=== PATIENT | male | born 1965 | race Caucasian/White ===

== ENCOUNTER 2017-12-31 12:31 | Emergency (ER) | payer SELFPAY ==
--- NOTE | 2017-12-31 12:51 | EDPHY ---
H & P Stated Complaint: Trouble sleeping >1mo;urine green>1mo;"problem w/alcohol" Time Seen by Provider: 12/31/17 12:50 HPI/ROS: HPI: This is a 52-year-old male who presents with Chief Complaint: Trouble sleeping >1mo;urine green>1mo;"problem w/alcohol" Location: heart Quality: Heart racing Duration: 1 month Signs and Symptoms: + shortness of breath at rest, no shortness of breath on exertion, no cough, no chest pain, + palpitations, no lower extremity edema, no wheezing, no orthopnea, no paroxysmal nocturnal dyspnea, no fever, no injury/ trauma, no hemoptysis, no carpal pedal spasms Timing: Intermittent episodes, lasting for min to hours Severity: Moderate Context: Patient reports he lost his job approximately 1 month ago, drinks 8 beers every evening and over the last month has had difficulty sleeping described as going to sleep as well as stain to sleep. He reports that in the past he has had some anxiety issues. He wakes up in the middle the night with bad dreams and having panic attack. He complains of his heart racing sometimes for min to hours accompanied by difficulty breathing, getting his breath, sweating. He denies any seizure activity. He reports that he has no primary care provider or health insurance at this time. He denies any homicidal ideation/suicidal ideation/hallucinations. Patient also incidentally complains of having green colored urine over the last month. Denies any history of kidney stones/hematuria/urinary hesitancy. No heavy metal exposure. Modifying Factors: None Comment: ROS: see HPI Constitutional: No fever, no chills, no weight loss Eyes: No blurred vision Respiratory: No shortness of breath, no cough Cardiovascular: No chest pain Gastrointestinal: No nausea, no vomiting, no diarrhea Genitourinary: No dysuria Extremities: No myalgias Neurologic: No weakness, no numbness Skin: No rashes Hematologic: No bruising, no bleeding MEDICAL/SURGICAL/SOCIAL HISTORY: Medical history: Generally drinks 8 beers every evening. Does not take any regular medications. Surgical history: Denies Social history: Current every day smoker. Currently unemployed. Family history noncontributory. CONSTITUTIONAL: Nontoxic appearing adult middle aged male, awake and alert, no obvious distress HEENT: Atraumatic and normocephalic, PERRL, EOMI. Nares patent; no rhinorrhea; no nasal mucosal edema. Tympanic membranes clear. Oropharynx clear, no exudate and moist pink mucosa. Airway patent. No lymphadenopathy. No meningismus. Cardiovascular: Normal S1/S2, regular rate, regular rhythm, without murmur rub or gallop. PULMONARY/CHEST: Symmetrical and nontender. Clear to auscultation bilaterally. Good air movement. No accessory muscle usage. ABDOMEN: Soft, nondistended, nontender, no rebound, no guarding, no peritoneal signs, no masses or organomegaly. No CVAT. EXTREMITIES: 2/2 pulses, strength 5/5, no deformities, no clubbing, no cyanosis or edema. NEUROLOGICAL: no focal neuro deficits. GCS 15. SKIN: Warm and dry, no erythema. no rash. Good capillary refill. PSYCH: flat affect, good eye contact, no flight of ideas, organized thought process, fair insight and judgment, no auditory and visual command hallucinations, no suicidal ideation with a plan, no homicidal ideation, not paranoid Source: Patient Exam Limitations: No limitations - Personal History Current Tetanus Diphtheria and Acellular Pertussis (TDAP): Yes - Medical/Surgical History Hx Alcoholism: Yes Other PMH: "healthy" - Social History Smoking Status: Current every day smoker Constitutional: Initial Vital Signs Temperature (C) 36.7 C 12/31/17 12:33 Heart Rate 70 12/31/17 12:33 Respiratory Rate 18 12/31/17 12:33 Blood Pressure 186/98 H 12/31/17 12:33 O2 Sat (%) 95 12/31/17 12:33 O2 Delivery Mode Room Air Allergies/Adverse Reactions: No Known Allergies Allergy (Unverified 12/31/17 12:37) Home Medications: Medication Instructions Recorded NK [No Known Home Meds] 12/31/17 Medical Decision Making - Diagnostics EKG Interpretation: 12 lead EKG: Indication: palpitations Rhythm: Normal sinus rhythm, rate 68 bpm [place]: Normal Intervals: Normal QRS: Normal ST segments: Normal INTERPRETATION: LAFB The 12 lead EKG was interpreted by myself. ED Course/Re-evaluation: EKG, labs, urinalysis ordered Does not meet M1 hold or Detainer criteria EKG my read shows normal sinus rhythm, 68 beats per minute. no arrhythmia/acute ischemic changes. Urinalysis is completely unremarkable. 1325: Reviewed labs. No signs of leukocytosis/anemia/TORRES/elevated LFTs/ electrolyte imbalance/thyroid disease/ACS. Blood pressure improved at discharge SBP 144/102 Referral given to [facility]. This patient was seen under the supervision of my secondary supervising physician. I evaluated care for this patient independently. Discussed this patient with Dr. Cleveland who did not see the patient. Differential Diagnosis: Palpitations including but not limited to myocardial ischemia, pulmonary embolus , chest wall pain, pleural inflammation and pulmonary infectious causes. - Data Points Laboratory Results: Laboratory Results 12/31/17 13:10 12/31/17 13:10 12/31/17 12/31/17 12/31/17 13:10 13:10 12:45 WBC 6.30 10^3/uL 10^3/uL (3.80-9.50) RBC 5.03 10^6/uL 10^6/uL (4.40-6.38) Hgb 16.0 g/dL g/dL (13.7-17.5) Hct 45.9 % % (40.0-51.0) MCV 91.3 fL fL (81.5-99.8) MCH 31.8 pg pg (27.9-34.1) MCHC 34.9 g/dL g/dL (32.4-36.7) RDW 12.7 % % (11.5-15.2) Plt Count 236 10^3/uL 10^3/uL (150-400) MPV 10.4 fL fL (8.7-11.7) Neut % (Auto) 64.9 % % (39.3-74.2) Lymph % (Auto) 23.3 % % (15.0-45.0) [place] % (Auto) 10.2 % % (4.5-13.0) Eos % (Auto) 0.8 % % (0.6-7.6) Baso % (Auto) 0.5 % % (0.3-1.7) Nucleat RBC Rel Count 0.0 % % (0.0-0.2) Absolute Neuts (auto) 4.09 10^3/uL 10^3/uL (1.70-6.50) Absolute Lymphs (auto) 1.47 10^3/uL 10^3/uL (1.00-3.00) Absolute Monos (auto) 0.64 10^3/uL 10^3/uL (0.30-0.80) Absolute Eos (auto) 0.05 10^3/uL 10^3/uL (0.03-0.40) Absolute Basos (auto) 0.03 10^3/uL 10^3/uL (0.02-0.10) Absolute Nucleated RBC 0.00 10^3/uL 10^3/uL (0-0.01) Immature Gran % 0.3 % % (0.0-1.1) Immature Gran # 0.02 10^3/uL 10^3/uL (0.00-0.10) Sodium 137 mEq/L mEq/L (135-145) Potassium 4.3 mEq/L mEq/L (3.5-5.2) Chloride 100 mEq/L mEq/L (97-110) Carbon Dioxide 22 mEq/l mEq/l (22-31) Anion Gap 15 mEq/L mEq/L (8-16) BUN 9 mg/dL mg/dL (7-23) Creatinine 0.6 mg/dL L mg/dL (0.7-1.3) Estimated GFR > 60 Glucose 101 mg/dL H mg/dL (70-100) Calcium 9.2 mg/dL mg/dL (8.5-10.4) Magnesium 1.9 mg/dL mg/dL (1.6-2.3) Total Bilirubin 0.9 mg/dL mg/dL (0.1-1.4) AST 23 IU/L IU/L (17-59) ALT 41 IU/L IU/L (21-72) Alkaline Phosphatase 59 IU/L IU/L (38-126) Troponin I < 0.012 ng/mL ng/mL (0.000-0.034) Total Protein 7.3 g/dL g/dL (6.3-8.2) Albumin 4.2 g/dL g/dL (3.5-5.0) TSH 1.420 uIU/mL uIU/mL (0.465-4.680) Urine Color PALE YELLOW Urine Appearance CLEAR Urine pH 7.0 (5.0-7.5) Ur Specific [place] 1.005 (1.002-1.030) Urine Protein NEGATIVE (NEGATIVE) Urine Ketones NEGATIVE (NEGATIVE) Urine Blood NEGATIVE (NEGATIVE) Urine Nitrate NEGATIVE (NEGATIVE) Urine Bilirubin NEGATIVE (NEGATIVE) Urine Urobilinogen NEGATIVE EU EU (0.2-1.0) Ur Leukocyte Esterase NEGATIVE (NEGATIVE) Urine Glucose NEGATIVE (NEGATIVE) Departure - Departure Disposition: Home, Routine, Self-Care Clinical Impression: Alcohol abuse, continuous drinking behavior, Stress and adjustment reaction, Elevated blood pressure reading Condition: Good Instructions: Alcohol Withdrawal (ED), Alcohol Use Disorder (ED) Additional Instructions: Slowly refrain from using alcohol. Establish care at [facility] for elevated blood pressure readings as well as [facility] for counseling and assessment. Call 911 if you have thoughts of hurting or killing yourself or anyone else, or have any new or worsening symptoms that concern you. Referrals: [facility],. [Clinic] - As per Instructions [facility],. [Clinic] - As per Instructions [facility] [Outside] - As per Instructions
--- NOTE | 2017-12-31 13:04 | CPEKG ---
Heart Rate: 68 RR Interval: 882 P-R Interval: 168 QRSD Interval: 94 QT Interval: 436 QTC Interval: 464 P Tava[place]: 9 QRS [place]ava[place]: -64 T Wave [place]ava[place]: 29 EKG Severity - ABNORMAL ECG - EKG Impression: SINUS RHYTHM EKG Impression: LEFT ANTERIOR FASCICULAR BLOCK Electronically Signed By: Sean Barker 02-Jan-2018 09:00:34
[2017-12-31 13:21] LABS: PLATELET COUNT 236 10^3/uL (150-400)
[2017-12-31 13:54] VITALS: BP 144/102
== END 2017-12-31 14:17 | disposition home or self-care (01) ==
DX: F10.129 Alcohol abuse with intoxication, unspecified (principal); F43.9 Reaction to severe stress, unspecified; F43.20 Adjustment disorder, unspecified; R03.0 Elevated blood-pressure reading, without diagnosis of hypertension; F17.200 Nicotine dependence, unspecified, uncomplicated